=== PATIENT | male | born 1955 | race Caucasian/White ===

== ENCOUNTER 2022-08-09 19:52 | Inpatient (IN) | payer OTHER ==
[~2022-08-09] VITALS: Ht 177.8 cm; Wt 59.0 kg
--- NOTE | 2022-08-09 19:52 | NUR ---
Dr. Adams examining patient.
[2022-08-09 19:54] VITALS: BP 94/62
--- NOTE | 2022-08-09 19:57 | NUR ---
PT DANIEL ALS. TAKEN TO BED 4
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
--- NOTE | 2022-08-09 20:15 | NUR ---
[place] PD on scene.
--- NOTE | 2022-08-09 20:22 | NUR ---
PT TAKEN TO XRAY
--- NOTE | 2022-08-09 20:24 | NUR ---
pt taken to xray
--- NOTE | 2022-08-09 20:56 | NUR ---
PT BACK FROM XRAY
[2022-08-09] MEDS ORDERED: MORPHINE SULFATE 4 MG/ML SYR IVP ONE (21:25)
[2022-08-09 21:40] LABS: BASOPHILS % (AUTO) 0.3 % (0.0-2.0); EOSINOPHILS % (AUTO) 0.3 % (0.0-4.0); HEMATOCRIT 35.6 % (36-52); HEMOGLOBIN 12.3 g/dL (12.0-18.0); LYMPHOCYTES # (AUTO) 0.9 K/uL (2.0-11.5); LYMPHOCYTES % (AUTO) 5.8 % (20.5-51.1); MEAN CORPUSCULAR HEMOGLOBIN 31 pg (27-31); MEAN CORPUSCULAR HGB CONC 35 g/dL (33-37); MEAN CORPUSCULAR VOLUME 90.6 fL (80-94); MONOCYTES # (AUTO) 0.6 K/uL (0.8-1.0); MONOCYTES % (AUTO) 4.4 % (1.7-9.3); NEUTROPHILS # (AUTO) 13.3 K/uL (1.8-7.7); NEUTROPHILS % (AUTO) 89.2 % (42.2-75.2); PLATELET COUNT (AUTO) 277 K/uL (140-450); RED BLOOD CELL COUNT(AUTO) 3.93 MIL/uL (4.20-6.10); RED CELL DISTRIBUTION WIDTH 13.2 % (11.6-13.7); WHITE BLOOD COUNT (AUTO) 14.9 K/uL (4.8-10.8)
[2022-08-09] MEDS ORDERED: NACL 0.9% 1,000 ML IV ONE (21:40)
[2022-08-09] MEDS ORDERED: HYDROcodone/APAP 5/325 MG 1 TAB TAB PO PRN (21:40)
[2022-08-09 21:54] LABS: ALBUMIN 3.5 g/dL (3.4-5.0); ANION GAP 7.7 (8-16); CARBON DIOXIDE 33.6 mmol/L (21-32); CREATININE 1.8 mg/dL (0.6-1.3); POTASSIUM 3.3 mmol/L (3.5-5.1); TOTAL BILIRUBIN 0.5 mg/dL (0.0-1.0)
--- NOTE | 2022-08-10 | NUR ---
pt resting in bed, NAD
--- NOTE | 2022-08-10 03:00 | NUR ---
pt resting in bed, NAD
--- NOTE | 2022-08-10 05:30 | NUR ---
pt resting in bed, NAD
[2022-08-10] MEDS ORDERED: MAG SULF 2000 MG/WATER PREMIX 50 ML IV PRN (07:00)
[2022-08-10] MEDS ORDERED: ACETAMINOPHEN 325 MG TAB PO PRN (07:00)
[2022-08-10] MEDS ORDERED: DOCUSATE SODIUM 100 MG GELCAP PO PRN (07:00)
[2022-08-10] MEDS ORDERED: ONDANSETRON 4 MG/2 ML VIAL IVP PRN (07:00)
[2022-08-10] MEDS ORDERED: POTASSIUM CHLORIDE 10 MEQ TABER PO PRN (07:00)
[2022-08-10] MEDS ORDERED: MORPHINE SULFATE 2 MG/ML SYR IVP PRN (07:00)
[2022-08-10] MEDS ORDERED: LORazepam 2 MG/ML VIAL IVP PRN (07:00)
--- NOTE | 2022-08-10 07:22 | NUR ---
report given to Andrew VÁZQUEZ
--- NOTE | 2022-08-10 07:26 | NUR ---
Dr. Gutierrez examining patient.
[2022-08-10 08:19] LABS: BASOPHILS % (AUTO) 0.5 % (0.0-2.0); EOSINOPHILS % (AUTO) 0.5 % (0.0-4.0); HEMATOCRIT 35.1 % (36-52); HEMOGLOBIN 12.1 g/dL (12.0-18.0); LYMPHOCYTES # (AUTO) 1.6 K/uL (2.0-11.5); LYMPHOCYTES % (AUTO) 16.3 % (20.5-51.1); MEAN CORPUSCULAR HEMOGLOBIN 31 pg (27-31); MEAN CORPUSCULAR HGB CONC 35 g/dL (33-37); MEAN CORPUSCULAR VOLUME 91.1 fL (80-94); MONOCYTES # (AUTO) 0.8 K/uL (0.8-1.0); MONOCYTES % (AUTO) 8.7 % (1.7-9.3); NEUTROPHILS # (AUTO) 7.1 K/uL (1.8-7.7); PLATELET COUNT (AUTO) 267 K/uL (140-450); RED BLOOD CELL COUNT(AUTO) 3.85 MIL/uL (4.20-6.10); RED CELL DISTRIBUTION WIDTH 13.3 % (11.6-13.7); WHITE BLOOD COUNT (AUTO) 9.6 K/uL (4.8-10.8)
[2022-08-10 08:32] LABS: ANION GAP 9.8 (8-16); CARBON DIOXIDE 30.5 mmol/L (21-32); CREATININE 1.3 mg/dL (0.6-1.3); POTASSIUM 4.3 mmol/L (3.5-5.1)
--- NOTE | 2022-08-10 08:45 | NUR ---
Patient will be admitted to care of MD Tamara DE LA ROSA. Admited to [facility]. Will go to room 107B. [employer] list completed. Report to PEPE VÁZQUEZ. Addendum: 08/10/22 at 1057 by [id number] Patient will be admitted to care of MD Tamara DE LA ROSA. Admited to [facility]. Will go to room 107B. Belongings list completed. Report to KAVITA VÁZQUEZ.
--- NOTE | 2022-08-10 08:45 | NUR ---
CARE ENDORSED, BEDSIDE REPORT TO KAVITA VÁZQUEZ FOR ROOM 107B MED SURG. PT AAOX4. VSS. NAD NOTED. NS@80CC/HR INFUSING TO 18G LEFT AC. SKIN INTACT. NO CURRENT COMPLAINTS. END OF CARE.
--- NOTE | 2022-08-10 08:53 | NUR ---
RECEIVED PT CARE AND REPORT FROM CARLA ER NURSE. PT WAS IN BED UPON ENTERING ROOM. LYING SEMI FOWLERS, A&OX4, APPEARS CALM. NO VISIBLE S/S OF DISTRESS OR SOB. PT IS COMPLAINING OF PAIN AT THIS TIME. 11/02. PT ORIENTED TO CALL LIGHT AND BED CONTROLS. MED SURG. EDUCATED PT ABOUT ADMISSION PROCESS. PT VERBALIZES UNDERSTANDING. ALL NEEDS MET AT THIS TIME. WILL MEDICATE ORDERED FOR PAIN.
[2022-08-10] MEDS: MORPHINE SULFATE 2 MG/ML SYR IVP PRN (09:01)
--- NOTE | 2022-08-10 09:21 | NUR ---
PATIENT HAS BEEN SCREENED AND CATEGORIZED LOW NUTRITION RISK. PATIENT WILL BE SEEN WITHIN 7 DAYS OF ADMISSION. 08/16/22 REVIEWED BY ROSEMARIE BOYCE RD
--- NOTE | 2022-08-10 09:30 | NUR ---
VITAL SIGNS: BP: 127/88, HR: 73, TEMP: 98.4, RR: 19, SPO2: 99%.
--- NOTE | 2022-08-10 13:21 | NUR ---
MRSA SWAB COLLECTED AND PLACED IN LAB BIN.
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
--- NOTE | 2022-08-10 15:39 | NUR ---
LEFT FA IV OCCLUDED. REMOVED WITH CATHETER INTACT. SKIN INTACT WITHOUT REDNESS, PAIN OR SWELLING. MINIMAL BLEEDING. STARTED NEW IV ON RIGHT FA 20G X2 ATTEMPTS. NEW IV SECURED AND IV FLUIDS CONNECTED AND STARTED PER ORDER.
[2022-08-10 16:00] VITALS: BP 125/69
--- NOTE | 2022-08-10 18:26 | NUR ---
CALL RECEIVED FROM PHARMACY. STATED THAT MEDICATION RECONCILIATION HAS NOT BEEN DONE. TEXTED DR. DE LA ROSA. HE STATED THAT HE WILL DO IT TONIGHT.
--- NOTE | 2022-08-10 18:41 | NUR ---
SPOKE WITH PATIENT ABOUT HOME MEDICATIONS. PT DOES NOT HAVE PRESCRIPTION OR MEDICATIONS WITH HIM. UNABLE TO NAME MEDS AND DOSES. SPOKE WITH RUTH RAMOS NURSE. UNABLE TO COMPLETE MED RECON.
--- NOTE | 2022-08-10 18:45 | NUR ---
PT IS RESTING HIGH FOWJEB, A&OX4, APPEARS CALM, EATING DINNER. AT BEDSIDE. NO VISIBLE S/S OF DISTRESS OR DISCOMFORT. DENIES PAIN OR SOB. CALL LIGHT IS WITHIN REACH, ALL NEEDS MET AT THIS TIME. WILL ENDORSE TO NOC SHIFT NURSE.
--- NOTE | 2022-08-10 19:10 | NUR ---
RECEIVED REPORT FROM DAY SHIFT NURSE KAVITA FOR CONTINUITY OF CARE. PT AWAKE IN BED, WITH VISITOR AT BEDSIDE. RESPIRATIONS EVEN AND UNLABORED ON RA. NO DISTRESS NOTED. NO COMPLAINTS OF PAIN AT THIS TIME. IV SITE ON RFA 20G INFUSING IVF. POC DISCUSSED. REPORT GIVEN TO KATHIE SENA. CALL LIGHT WITHIN REACH. SAFETY PRECAUTIONS IN PLACE.
[2022-08-10 20:00] VITALS: BP 115/74
--- NOTE | 2022-08-10 20:00 | NUR ---
Patient's Plan of Care was discussed and reviewed with ANNA LUCIANO:
[2022-08-10] MEDS ORDERED: ZOLPIDEM 10 MG TAB PO PRN (21:00)
--- NOTE | 2022-08-10 21:17 | NUR ---
DUE MED ADMINISTERED. V/S WITHIN NORMAL LIMITS.
--- NOTE | 2022-08-11 00:53 | NUR ---
DID ROUNDS. NOTED BILATERAL CHEST RISE AND FALL. RR 20. NO DISTRESS AND DISCOMFORT NOTED. SAFETY PRECAUTIONS IN PLACE.
[2022-08-11 04:00] VITALS: BP 118/77
--- NOTE | 2022-08-11 07:17 | NUR ---
RECEIVED REPORT FROM NIGHTSHIFT NURSE ANNA FOR CONTINUITY OF CARE. PT IN STABLE CONDITION, CURRENTLY SLEEPING.
--- NOTE | 2022-08-11 07:17 | NUR ---
GAVE BEDSIDE REPORT TO KATHIE LUI FOR CONTINUITY OF CARE. PT IS STABLE.
[2022-08-11 07:32] LABS: BASOPHILS % (AUTO) 0.4 % (0.0-2.0); EOSINOPHILS # (AUTO) 0.1 K/uL (0-0.4); EOSINOPHILS % (AUTO) 0.8 % (0.0-4.0); HEMATOCRIT 38.7 % (36-52); HEMOGLOBIN 13.4 g/dL (12.0-18.0); LYMPHOCYTES # (AUTO) 1.3 K/uL (2.0-11.5); LYMPHOCYTES % (AUTO) 14.1 % (20.5-51.1); MEAN CORPUSCULAR HEMOGLOBIN 31 pg (27-31); MEAN CORPUSCULAR HGB CONC 35 g/dL (33-37); MEAN CORPUSCULAR VOLUME 90.5 fL (80-94); MONOCYTES # (AUTO) 0.8 K/uL (0.8-1.0); MONOCYTES % (AUTO) 9.1 % (1.7-9.3); NEUTROPHILS # (AUTO) 6.8 K/uL (1.8-7.7); NEUTROPHILS % (AUTO) 75.6 % (42.2-75.2); PLATELET COUNT (AUTO) 278 K/uL (140-450); RED BLOOD CELL COUNT(AUTO) 4.27 MIL/uL (4.20-6.10); RED CELL DISTRIBUTION WIDTH 13.3 % (11.6-13.7)
--- NOTE | 2022-08-11 07:54 | NUR ---
DR. DE LA ROSA IN TO SEE PT.
[2022-08-11 08:00] VITALS: BP 130/92
[2022-08-11 08:31] LABS: CARBON DIOXIDE 29.7 mmol/L (21-32); CREATININE 0.7 mg/dL (0.6-1.3); POTASSIUM 4.7 mmol/L (3.5-5.1)
--- NOTE | 2022-08-11 08:40 | NUR ---
DC PLANNING LATE ENTRY, PT SEEN ON 08/10/22 ASSESSMENT COMPLETE PLEASE REFER TO ASSESSMENT FOR ADDITIONAL DETAILS PT REPORTS DC PLAN TENTATIVE ON PHYSICIANS RECOMMENDATIONS. Addendum: 08/11/22 at 0842 by Swapna DOMINGUEZ Amended: Links added.
[2022-08-11] MEDS: MORPHINE SULFATE 2 MG/ML SYR IVP PRN (09:30)
--- NOTE | 2022-08-11 09:30 | NUR ---
MEDICATED PRN MORPHINE FOR LEFT HIP PAIN 12/03.
--- NOTE | 2022-08-11 12:30 | NUR ---
DR. PHILLIPS IN TO SEE PT. PER DR. PHILLIPS, PT TO BE TX TO HLOC DUE COMPLEX LEFT HIP FX. NOTIFIED WORK OVER RIG OPERATOR TALON.
--- NOTE | 2022-08-11 12:48 | NUR ---
MEDICATED WITH PRN MAG RIDER FOR MAG LEVEL 1.7.
--- NOTE | 2022-08-11 13:55 | NUR ---
PER ORTHO WOULD LIKE PATIENT TO HAVE SURGERY PRIOR TO ANY PHYSICAL THERAPY SERVICES. PATIENT IS AWAITING HLOC FOR TRAUMA SURGEON. RN AWARE.
--- NOTE | 2022-08-11 14:25 | NUR ---
PCR ORDERED FOR TX TO [facility], SPECIMEN TAKEN TO LAB.
--- NOTE | 2022-08-11 15:00 | NUR ---
PT CURRENTLY SLEEPING, NO SIGNS OF PAIN OR DISTRESS NOTED AT THIS TIME.
[2022-08-11 16:00] VITALS: BP 145/76
--- NOTE | 2022-08-11 17:30 | NUR ---
PT TAKEN TO CT SCAN VIA BED.
--- NOTE | 2022-08-11 18:10 | NUR ---
PT BACK FROM CT SCAN
--- NOTE | 2022-08-11 19:19 | NUR ---
ENDORSED PT TO NIGHTSMDFT NURSE ANNA FOR CONTINUITY OF CARE. PT IN STABLE CONDITION.
--- NOTE | 2022-08-11 19:20 | NUR ---
RECEIVED REPORT FROM DAY SHIFT NURSE BRAULIO FOR CONTINUITY OF CARE. PT SLEEPING, EASILY AROUSABLE BY VERBAL STIMULI. RESPIRATIONS EVEN AND UNLABORED ON RA. NO SIGNS OF PAIN AND DISCOMFORT NOTED. IV SITE ON RFA, SL. POC DISCUSSED. REPORT GIVEN TO KATHIE MAHAJAN. CALL LIGHT WITHIN REACH. SAFETY PRECAUTIONS IN PLACE.
[2022-08-11 20:00] VITALS: BP 121/79
[2022-08-11 20:11] VITALS: BP 121/79
--- NOTE | 2022-08-11 20:35 | NUR ---
INFORMED PT THAT HE WILL BE TRANSFERRED TO [facility]. PT VERBALIZED UNDERSTANDING. PT STATED THAT HE WILL THEN CALL HIS PARTNER AND INFORM ABOUT HIS TRANSFER.
--- NOTE | 2022-08-11 21:05 | NUR ---
REPORT GIVEN TO KATHIE MOLINA OF [facility].
--- NOTE | 2022-08-11 21:11 | NUR ---
ADMINISTERED DUE MED. PT TOLERATED WELL.
--- NOTE | 2022-08-11 21:35 | NUR ---
DC PAPERS DISCUSSED WITH THE PT. PT VERBALIZED UNDERSTANDING. CLEANED AND CHANGED PT GOWN, PT READY FOR TRANSFER. PT COMFORTABLY LYING IN BED, AWAITING FOR PICK-UP.
--- NOTE | 2022-08-11 22:10 | NUR ---
PT DC TO [facility]. PT TRANSPORTED VIA GURNEY. IV SITE ON RFA 20G KEPT IN PLACE. REMOVED ID WRIST BAND. ALL BELONGINGS TAKEN UPON DC. PT IS STABLE.
== END 2022-08-11 22:10 | disposition short-term general hospital (02) | DRG 535 ==
LOC: MED 19:52 → MMU 21:43 → MED 21:51 → MTU 08-10 06:52
PROVIDERS: ADMIT General Practice; ATTEND General Practice
DX: S32.402A Unspecified fracture of left acetabulum, initial encounter for closed fracture (principal); N17.0 Acute kidney failure with tubular necrosis; S32.592A Other specified fracture of left pubis, initial encounter for closed fracture; E78.5 Hyperlipidemia, unspecified; E83.42 Hypomagnesemia; Z20.822 Contact with and (suspected) exposure to COVID-19; D72.829 Elevated white blood cell count, unspecified; I10 Essential (primary) hypertension; W18.39XA Other fall on same level, initial encounter; Y93.89 Activity, other specified; Y92.89 Other specified places as the place of occurrence of the external cause; Y99.8 Other external cause status
CPT/HCPCS: 36415; 72192; 73502; 80048; 80053; 83036; 83735; 85025; 87081; 87635-QW; 96361; 96374; 99285; J1644; J2270; J3475